=== PATIENT | female | born 2000 | race Caucasian/White ===

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

== ENCOUNTER 2019-02-11 17:18 | Emergency (ER) | payer BC ==
[~2019-02-11 17:18] MED LIST: AMOX875T60 PO; AZIT-1 PO; CEF300 PO; PRED20TA6 PO
[2019-02-11] MEDS ORDERED: LEVO25TA61 PO (17:28)
--- NOTE | 2019-02-11 17:30 | ER Report ---
History and Physical Time Seen By MD: 17:30 Hx. of Stated Complaint: HEAD HURTS HPI/ROS CHIEF COMPLAINT: Headache HISTORY OF PRESENT ILLNESS: 18-year-old female patient presents to emergency room with complaint of headache. Patient states that she has had a headache for the past week. She states that she has taken some ibuprofen for this with no improvement. She states the pain is worse when she goes to work her anytime she is active. Patient denies any vomiting but states that she has had nausea. Patient denies any diarrhea. Patient states she's had had any changes in her diet or medications. Patient denies any fevers, chills. Patient rates her pain a 7-7.5 out of 10. REVIEW OF SYSTEMS: Respiratory: No cough, no dyspnea. Cardiovascular: No chest pain, no palpitations. Gastrointestinal: No vomiting, no abdominal pain. Musculoskeletal: No back pain. Allergies: Coded Allergies: No Known Drug Allergies (Unverified , 02/11/19) Home Meds Active Scripts Ketorolac Tromethamine (KETOROLAC TROMETHAMINE) 10 Mg Tab, 10 MG PO Q6H, #20 TAB Prov:VARGHESE JUAREZ RENAL NURSE 02/11/19 Reported Medications Levothyroxine Sodium (LEVOTHYROXINE SODIUM) 25 Mcg Tablet, 25 MCG PO QDAY 02/11/19 Past Medical/Surgical History Patient has a past medical history of TIA, mono, pneumonia. Patient denies any pertinent surgical history. Patient has a family medical history of stroke. Reviewed Nurses Notes: Yes Hx Smoking: No Smoking Status: Never Smoker Exposure to Second Hand Smoke?: No Hx Substance Use Disorder: No Hx Alcohol Use: No Constitutional Vital Sign - Last 24 Hours 02/11/19 02/11/19 02/11/19 02/11/19 17:23 17:29 17:30 17:33 Temp 97.8 Pulse 74 77 Resp 14 B/P (MAP) 115/84 (94) 115/84 109/69 (82) Pulse Ox 91 94 O2 Delivery Room Air 02/11/19 02/11/19 02/11/19 02/11/19 17:48 18:00 18:03 18:18 Pulse 76 80 71 Resp 13 24 24 B/P (MAP) 106/60 (75) Pulse Ox 88 94 02/11/19 02/11/19 02/11/19 02/11/19 18:30 18:33 18:48 19:00 Pulse 69 75 Resp 23 12 B/P (MAP) 104/63 (77) 86/66 (73) Pulse Ox 93 92 02/11/19 02/11/19 02/11/19 02/11/19 19:03 19:08 19:16 19:23 Pulse 74 60 ??? Resp 30 16 15 B/P (MAP) 112/82 (92) Pulse Ox 93 94 02/11/19 02/11/19 02/11/19 19:28 19:30 19:43 Pulse 73 ??? Resp 26 14 B/P (MAP) 99/70 (80) Pulse Ox 91 68 Physical Exam General Appearance: The patient is alert, has no immediate need for airway protection and no current signs of toxicity. Eyes: Pupils equal and round no injection. ENT: Tympanic membranes are pearly-malik, auditory canals are patent, mixed mucous membranes are moist. Neuro: Patient is alert and oriented 4, cranial nerves II through XII grossly intact. Respiratory: Chest is non tender, lungs are clear to auscultation. Cardiac: regular rate and rhythm Gastrointestinal: Abdomen is soft and non tender, no masses, bowel sounds normal. Musculoskeletal: Neck: Neck is supple and non tender. Extremities have full range of motion and are non tender. Skin: No rashes or lesions. DIFFERENTIAL DIAGNOSIS: After history and physical exam differential diagnosis was considered for headache including but not limited to subarachnoid hemorrhage, migraine headache, tension headache and infectious causes such as meningitis, pharyngitis and sinusitis. Medical Decision Making Data Points Result Diagram: 02/11/19 1745 02/11/19 1745 Laboratory Hematology Test 02/11/19 17:45 Red Blood Count 4.35 M/uL (4.17-5.56) Mean Corpuscular Volume 86.9 fL (80.0-96.0) Mean Corpuscular Hemoglobin 30.1 pg (26.0-33.0) Mean Corpuscular Hemoglobin Concent 34.7 g/dL (32.0-36.0) Red Cell Distribution Width 13.2 % (11.5-14.5) Mean Platelet Volume 8.8 fL (7.2-11.1) Neutrophils (%) (Auto) 45.6 % (39.4-72.5) Lymphocytes (%) (Auto) 40.5 % (17.6-49.6) Monocytes (%) (Auto) 11.5 % (4.1-12.4) Eosinophils (%) (Auto) 1.5 % (0.4-6.7) Basophils (%) (Auto) 0.9 % (0.3-1.4) Nucleated RBC Relative Count (auto) 0.6 /100WBC Neutrophils # (Auto) 1.3 K/uL (2.0-7.4) Lymphocytes # (Auto) 1.1 K/uL (1.3-3.6) Monocytes # (Auto) 0.3 K/uL (0.3-1.0) Eosinophils # (Auto) 0.0 K/uL (0.0-0.5) Basophils # (Auto) 0.0 K/uL (0.0-0.1) Nucleated RBC Absolute Count (auto) 0.02 K/uL Erythrocyte Sedimentation Rate 1 mm/HOUR (0-20) Sodium Level 138 mmol/L (137-145) Potassium Level 3.7 mmol/L (3.5-5.0) Chloride Level 105 mmol/L (98-107) Carbon Dioxide Level 26 mmol/L (22-31) Blood Urea Nitrogen 12 mg/dl (7-18) Creatinine 0.50 mg/dl (0.52-1.04) Glomerular Filtration Rate Calc > 60.0 Random Glucose 90 mg/dl (75-110) Calcium Level 8.4 mg/dl (8.4-10.2) Total Bilirubin 1.1 mg/dl (0.2-1.3) Aspartate Amino Transf (AST/SGOT) 43 U/L (0-35) Alanine Aminotransferase (ALT/SGPT) 47 U/L (0-56) Alkaline Phosphatase 56 U/L (0-126) C-Reactive Protein 1.4 mg/dl (<1.0) Total Protein 6.9 g/dl (6.3-8.2) Albumin 3.9 g/dl (3.5-5.0) Human Chorionic Gonadotropin, Qual Negative (NEGATIVE) Chemistry Test 02/11/19 17:45 White Blood Count 2.8 k/uL (4.5-11.0) Red Blood Count 4.35 M/uL (4.17-5.56) Hemoglobin 13.1 g/dL (12.0-16.0) Hematocrit 37.8 % (34.0-47.0) Mean Corpuscular Volume 86.9 fL (80.0-96.0) Mean Corpuscular Hemoglobin 30.1 pg (26.0-33.0) Mean Corpuscular Hemoglobin Concent 34.7 g/dL (32.0-36.0) Red Cell Distribution Width 13.2 % (11.5-14.5) Platelet Count 130 K/uL (150-450) Mean Platelet Volume 8.8 fL (7.2-11.1) Neutrophils (%) (Auto) 45.6 % (39.4-72.5) Lymphocytes (%) (Auto) 40.5 % (17.6-49.6) Monocytes (%) (Auto) 11.5 % (4.1-12.4) Eosinophils (%) (Auto) 1.5 % (0.4-6.7) Basophils (%) (Auto) 0.9 % (0.3-1.4) Nucleated RBC Relative Count (auto) 0.6 /100WBC Neutrophils # (Auto) 1.3 K/uL (2.0-7.4) Lymphocytes # (Auto) 1.1 K/uL (1.3-3.6) Monocytes # (Auto) 0.3 K/uL (0.3-1.0) Eosinophils # (Auto) 0.0 K/uL (0.0-0.5) Basophils # (Auto) 0.0 K/uL (0.0-0.1) Nucleated RBC Absolute Count (auto) 0.02 K/uL Erythrocyte Sedimentation Rate 1 mm/HOUR (0-20) Glomerular Filtration Rate Calc > 60.0 Calcium Level 8.4 mg/dl (8.4-10.2) Total Bilirubin 1.1 mg/dl (0.2-1.3) Aspartate Amino Transf (AST/SGOT) 43 U/L (0-35) Alanine Aminotransferase (ALT/SGPT) 47 U/L (0-56) Alkaline Phosphatase 56 U/L (0-126) C-Reactive Protein 1.4 mg/dl (<1.0) Total Protein 6.9 g/dl (6.3-8.2) Albumin 3.9 g/dl (3.5-5.0) Human Chorionic Gonadotropin, Qual Negative (NEGATIVE) EKG/Imaging Imaging EXAMINATION: CT Head without intravenous contrast HISTORY: Headache. TECHNIQUE: Axial images were obtained from the skull base to the vertex without intravenous contrast. Sagittal and coronal reformatted images are also submitted. One of the following dose optimization techniques was utilized in the performance of this exam: Automated exposure control; adjustment of the mA and/or kV according to the patient's size; or use of an iterative reconstruction technique. Specific details can be referenced in the facility's radiology CT exam operational policy. COMPARISON: None available. FINDINGS: Brain volume: Normal. Ventricles: Negative. Acute ischemic changes: None. Hemorrhage: None. Masses / edema: None. Malik-white: Negative. White matter: Negative. Vessels: Negative. Extra-axial: Negative. Calvarium / skull base: Negative. Visualized sinuses / orbits: Negative. IMPRESSION: Normal noncontrast head CT. Report Dictated By: Nelson Yang MD at 02/11/2019 6:49 PM Report E-Signed By: Nelson Yang MD at 02/11/2019 6:53 PM ED Course/Re-evaluation ED Course Patient was admitted to an exam room, history and physical were obtained. Differential diagnoses were considered. On examination lungs are clear, heart is regular, abdomen soft nontender. Posterior segments of the eyes were unremarkable. Neurologically the patient was intact. An IV was started, a CBC, CMP, ESR, CRP, hCG were done. Labs were unremarkable. A CT scan of the head was done which was negative. At that time patient received 15 mg of Toradol, 25 mg of Benadryl, 12.5 mg of Phenergan, 30 mg of Norflex. On reevaluation patient had complete resolution of her headache. She states she is ready to go home at this time. We will go ahead and discharge her home with a prescription of Toradol take as needed for pain. She is follow-up with her primary care provider next week. She is return to emergency room if condition worsens. Patient verbalized understanding and agreement with plan. Decision to Disposition Date: Feb 11, 2019 Decision to Disposition Time: 19:48 Depart Departure Latest Vital Signs Vital Signs Date Time Temp Pulse Resp B/P (MAP) Pulse Ox O2 Delivery O2 Flow Rate FiO2 02/11/19 19:43 ??? 14 68 02/11/19 19:30 99/70 (80) 02/11/19 17:29 97.8 Room Air Impression: Primary Impression: Headache Condition: Improved Disposition: HOME OR SELF-CARE Referrals: GARIMA [employer] SALES REPRESENTATIVE (PCP) New Scripts Ketorolac Tromethamine (KETOROLAC TROMETHAMINE) 10 Mg Tab 10 MG PO Q6H, #20 TAB Prov: VARGHESE JUAREZ 02/11/19 Patient Instructions: Acute Headache (ED) Additional Instructions: Get plenty of rest. Increase fluid intake. Follow up with your primary care provider in the next week. Return to the ER if condition worsens. Keep a journal for any possible triggers of your headaches. Problem Qualifiers Primary Impression: Headache Headache type: unspecified Headache chronicity pattern: acute headache Intractability: not intractable Qualified Codes: R51 - Headache VARGHESE JUAREZ Feb 11, 2019 17:30
[2019-02-11 18:04] LABS: PLATELET COUNT, AUTOMATED 130 K/uL (150-450)
--- NOTE | 2019-02-11 18:57 | RADIOLOGY IMAGING REPORT ---
FACILITY: [facility] [place] PATIENT NAME: Calli Canas : 2000 MR: [id number] V: [id number] EXAM DATE: ORDERING PHYSICIAN: VARGHESE JUAREZ TECHNOLOGIST: Location: [facility] [place] Patient: Calli Canas : 2000 Visit/Account:[id number] Date of Sevice: 02/11/2019 EXAMINATION: CT Head without intravenous contrast HISTORY: Headache. TECHNIQUE: Axial images were obtained from the skull base to the vertex without intravenous contrast . Sagittal and coronal reformatted images are also submitted. One of the following dose optimization techniques was utilized in the performance of this exam: Autom ated exposure control; adjustment of the mA and/or kV according to the patient's size; or use of an i terative reconstruction technique. Specific details can be referenced in the facility's radiology C T exam operational policy. COMPARISON: None available. FINDINGS: Brain volume: Normal. Ventricles: Negative. Acute ischemic changes: None. Hemorrhage: None. Masses / edema: None. Malik-white: Negative. White matter: Negative. Vessels: Negative. Extra-axial: Negative. Calvarium / skull base: Negative. Visualized sinuses / orbits: Negative. IMPRESSION: Normal noncontrast head CT. Report Dictated By: Nelson Yang MD at 02/11/2019 6:49 PM Report E-Signed By: Nelson Yang MD at 02/11/2019 6:53 PM [id number]
[2019-02-11] MEDS ORDERED: PROMETHAZINE 25 MG/ML 1 ML AMP IVP ONE (19:00)
[2019-02-11] MEDS ORDERED: NS(*) 0.9% 1000 ML BAG 1,000 ML IV ONE (19:00)
[2019-02-11] MEDS ORDERED: KETOROLAC 15 MG/ML VIAL IVP ONE (19:00)
[2019-02-11] MEDS ORDERED: ORPHENADRINE 60MG/2ML INJ IVP ONE (19:00)
[2019-02-11] MEDS ORDERED: diphenhydrAMINE 50 MG/ML VIAL IVP ONE (19:00)
[2019-02-11 19:30] VITALS: BP 99/70
[2019-02-11] MEDS ORDERED: KET10 PO (19:49)
== END 2019-02-11 19:52 | disposition home or self-care (01) ==
LOC: ER 17:23
DX: R51 Headache (principal)
CPT/HCPCS: 70450; 84703; 85025; 85651; 86140; 96361; 96374; 96375; 99284; J1200; J1885; J2360; J2550; J7030; 82040; 82247; 82310; 82374; 82435; 82565; 82947; 84075; 84132; 84155; 84295; 84450; 84460; 84520